=== PATIENT | female | born 1935 | race African-American/Black ===

== ENCOUNTER 2017-10-17 16:26 | Emergency (ER) | payer OTHER ==
[~2017-10-17] VITALS: Ht 162.6 cm; Wt 59.0 kg
[~2017-10-17 16:26] MED LIST: AMLODIPINE; ATENOLOL; FAMOTIDINE; LISINOPRIL; PRAVASTATIN; TIMOLOL
[2017-10-17] MEDS ORDERED: HYDROCODONE/ACETAMINOPHEN 5/325MG TABLET PO ONE (21:00)
[2017-10-17 22:36] VITALS: BP 154/56
== END 2017-10-17 22:55 | disposition home or self-care (01) ==
LOC: ER 16:26
DX: S13.4XXA Sprain of ligaments of cervical spine, initial encounter (principal); M54.5 Low back pain; I10 Essential (primary) hypertension; E04.2 Nontoxic multinodular goiter; R51 Headache; V49.88XA Car occupant (driver) (passenger) injured in other specified transport accidents, initial encounter; Y93.89 Activity, other specified; Y92.89 Other specified places as the place of occurrence of the external cause; Y99.8 Other external cause status; Z88.8 Allergy status to other drugs, medicaments and biological substances
CPT/HCPCS: 72100; 72125; 99284; 99285